=== PATIENT | male | born 1975 | race Native Hawaiian/Other Pacific Islander ===

== ENCOUNTER → 2017-10-17 | Outpatient (CLI) | payer OTHER ==
--- NOTE | 2017-11-18 12:27 | EM ---
EVENT MONITOR EVENT MONITOR: Patient in his event monitor had several recordings. Most of these are either sinus, sinus arrhythmia, sinus tachycardia, isolated PVCs. There was one episode which seems to be like a paroxysmal atrial tachycardia on 10/23/2017 at 12:09 pm. There is overall no significant arrhythmia other than those mentioned above. MMODL / IJN: [id number] /
== END | disposition home or self-care (01) ==
LOC: RADECHMAIN 11:58
PROVIDERS: ATTEND Family Medicine
DX: R42 Dizziness and giddiness (principal)
CPT/HCPCS: 93270; 93271

== ENCOUNTER → 2021-04-08 | Outpatient (CLI) | payer BC ==
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
== END | disposition home or self-care (01) ==
LOC: RADCTMAIN 09:19
PROVIDERS: ATTEND Otolaryngology
DX: S19.81XA Other specified injuries of larynx, initial encounter (principal)
CPT/HCPCS: 70491; Q9967

== ENCOUNTER 2023-07-19 07:23 | Day surgery (SDC) | payer BC ==
[2023-07-18 08:25] VITALS: BMI 25.0
[2023-07-19] MEDS ORDERED: LACTATED RINGERS 1,000 ML IV SCH (07:41)
[2023-07-19] MEDS ORDERED: LIDOCAINE 1% (10MG/ML) FOR IV START INTRADERMA PRN (07:41)
[2023-07-19 07:57] VITALS: RESP 16; TEMP 98
[2023-07-19] MEDS ORDERED: PROPOFOL 10 MG/ML 20 ML VIAL IV ONE (08:03)
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
--- NOTE | 2023-07-19 08:21 | P.PCN ---
Date of Procedure: 07/19/23 Procedure(s) Performed: PREOPERATIVE DIAGNOSIS: Colon cancer screening POSTOPERATIVE DIAGNOSIS: Mild diverticulosis PROCEDURE: Colonoscopy ANESTHESIA: MAC SURGEON: Damián Meyer M.D. SPECIMENS: None ENDOSCOPIC PROCEDURE: The patient was placed on the endoscopy table in the left decubitus position. The Olympus colonoscope was inserted into the anus and passed under direct visualization to the base of the cecum. The appendiceal orifice was visualized. From that point the scope was slowly withdrawn inspecting all surfaces carefully. There were no neoplastic inflammatory or polypoid lesions throughout the cecum, ascending, transverse, descending, sigmoid and rectum. There was mild left-sided diverticulosis noted. Digital rectal examination was normal. The patient was taken to the recovery room in stable condition per anesthesia guidelines. RECOMMENDATIONS: Resume diet. Repeat colonoscopy 10 years.
[2023-07-19 08:35] VITALS: BP 114/78; PULSE 70
== END 2023-07-19 09:01 | disposition home or self-care (01) ==
LOC: ORWHC2ENDO 07:23
PROVIDERS: ATTEND Surgery
DX: Z12.11 Encounter for screening for malignant neoplasm of colon (principal); K57.30 Diverticulosis of large intestine without perforation or abscess without bleeding; K21.9 Gastro-esophageal reflux disease without esophagitis; Z91.030 Bee allergy status
CPT/HCPCS: 45378; J2704